=== PATIENT | male | born 1995 ===

== ENCOUNTER 2022-02-07 21:10 | Emergency (ER) | payer MEDICAID ==
[~2022-02-07] VITALS: Ht 190.5 cm; Wt 90.9 kg
[2022-02-07 21:29] VITALS: BP 113/87
== END 2022-02-08 01:14 | disposition left against medical advice (07) ==
LOC: ER 21:11
DX: K13.79 Other lesions of oral mucosa (principal); Z53.21 Procedure and treatment not carried out due to patient leaving prior to being seen by health care provider